=== PATIENT | female | born 1960 | race Two or more races ===

== ENCOUNTER 2017-05-12 07:57 | Outpatient (CLI) | payer OTHER ==
[~2017-05-12 07:57] MED LIST: AMOX1TAB12 PO; CLONAZEPAM1 MG PO; CRESTOR10 MG PO; DOCUSATE SODIU100 MG PO; GABAPENTIN800 MG PO; NEURONTIN300 MG PO; PERCOCET 5-3251 EACH PO; SYNTHROID125 MCG PO
== END 2017-05-12 08:09 | disposition home or self-care (01) ==
LOC: MAMO-SONO 07:57
DX: C50.411 Malignant neoplasm of upper-outer quadrant of right female breast (principal); Z16.39 Resistance to other specified antimicrobial drug; Z88.3 Allergy status to other anti-infective agents

== ENCOUNTER 2017-05-14 12:02 | Outpatient (CLI) | payer OTHER | END 2017-05-14 16:38 | disposition home or self-care (01) | LOC: SONOGRAMA 12:02 | DX: C50.411 Malignant neoplasm of upper-outer quadrant of right female breast (principal); N63.13 Unspecified lump in the right breast, lower outer quadrant ==

== ENCOUNTER 2017-06-30 09:25 | Outpatient (CLI) | payer OTHER | END 2017-06-30 09:31 | disposition home or self-care (01) | LOC: RAD 09:25 | DX: M43.10 Spondylolisthesis, site unspecified (principal); Z98.1 Arthrodesis status ==

== ENCOUNTER 2017-12-23 07:45 | Outpatient (CLI) | payer OTHER | END 2017-12-23 07:53 | disposition home or self-care (01) | LOC: SONOGRAMA 07:45 | DX: C50.411 Malignant neoplasm of upper-outer quadrant of right female breast (principal); N60.11 Diffuse cystic mastopathy of right breast; N60.12 Diffuse cystic mastopathy of left breast ==

== ENCOUNTER 2017-12-24 09:25 | Outpatient (CLI) | payer OTHER | END 2017-12-24 15:03 | disposition home or self-care (01) | LOC: RAD 09:25 | DX: M43.10 Spondylolisthesis, site unspecified (principal); Z98.1 Arthrodesis status ==

== ENCOUNTER → 2018-05-06 | Outpatient (CLI) | payer OTHER | END | disposition home or self-care (01) | LOC: MAMO-SONO 08:39 | DX: C50.411 Malignant neoplasm of upper-outer quadrant of right female breast (principal); Z16.39 Resistance to other specified antimicrobial drug ==

== ENCOUNTER → 2019-04-28 | Outpatient (CLI) | payer OTHER | END | disposition home or self-care (01) | LOC: MAMO-SONO 11:03 | DX: C50.411 Malignant neoplasm of upper-outer quadrant of right female breast (principal); Z85.3 Personal history of malignant neoplasm of breast ==

== ENCOUNTER 2020-05-03 16:31 | Outpatient (CLI) | payer OTHER | END 2020-05-03 16:36 | disposition home or self-care (01) | LOC: MAMO-SONO 16:31 | PROVIDERS: ATTEND Internal Medicine Hematology & Oncology | DX: Z12.31 Encounter for screening mammogram for malignant neoplasm of breast (principal); C50.411 Malignant neoplasm of upper-outer quadrant of right female breast; Z85.3 Personal history of malignant neoplasm of breast ==

== ENCOUNTER 2021-05-02 08:31 | Outpatient (CLI) | payer OTHER | END 2021-05-02 08:35 | disposition home or self-care (01) | LOC: MAMO-SONO 08:31 | PROVIDERS: ATTEND Internal Medicine Hematology & Oncology | DX: E04.2 Nontoxic multinodular goiter (principal); Z85.3 Personal history of malignant neoplasm of breast; Z12.31 Encounter for screening mammogram for malignant neoplasm of breast; C50.411 Malignant neoplasm of upper-outer quadrant of right female breast ==

== ENCOUNTER 2021-12-05 09:18 | Outpatient (CLI) | payer OTHER | END 2021-12-05 09:26 | disposition home or self-care (01) | LOC: RAD 09:18 | PROVIDERS: ATTEND Physical Medicine & Rehabilitation Sports Medicine | DX: M25.551 Pain in right hip (principal) ==

== ENCOUNTER 2022-09-29 11:06 | Outpatient (CLI) | payer OTHER | END 2022-09-29 11:15 | disposition home or self-care (01) | LOC: NUCLEAR 11:06 | PROVIDERS: ATTEND Internal Medicine Endocrinology, Diabetes & Metabolism | DX: M85.89 Other specified disorders of bone density and structure, multiple sites (principal); Z13.820 Encounter for screening for osteoporosis ==

== ENCOUNTER → 2022-09-29 | Outpatient (CLI) | payer OTHER | END | disposition home or self-care (01) | LOC: SONOGRAMA 10:30 | PROVIDERS: ATTEND Internal Medicine Endocrinology, Diabetes & Metabolism | DX: E04.2 Nontoxic multinodular goiter (principal); R59.0 Localized enlarged lymph nodes ==

== ENCOUNTER 2023-03-12 09:03 | Outpatient (CLI) | payer OTHER | END 2023-03-12 09:19 | disposition home or self-care (01) | LOC: MAMO-SONO 09:03 | PROVIDERS: ATTEND Internal Medicine Hematology & Oncology | DX: Z12.31 Encounter for screening mammogram for malignant neoplasm of breast (principal) ==

== ENCOUNTER 2024-04-21 08:45 | Outpatient (CLI) | payer OTHER | END 2024-04-21 08:48 | disposition home or self-care (01) | LOC: MAMO-SONO 08:45 | PROVIDERS: ATTEND Internal Medicine Hematology & Oncology | DX: E04.1 Nontoxic single thyroid nodule (principal); E06.1 Subacute thyroiditis; E03.8 Other specified hypothyroidism; C50.411 Malignant neoplasm of upper-outer quadrant of right female breast; Z85.3 Personal history of malignant neoplasm of breast; Z12.31 Encounter for screening mammogram for malignant neoplasm of breast ==